=== PATIENT | female | born 1935 | race Hispanic/Latino ===

== ENCOUNTER 2016-08-12 10:29 | Outpatient (CLI) | payer MEDICARE ==
--- NOTE | 2016-08-13 10:29 | PET Report ---
PET SB TO MT SUBSEQUENT: HISTORY: Restaging of left breast cancer. TECHNIQUE: 13.7 millicuries F-18 FDG was administered intravenously. Noncontrast CT images and PET images were obtained from the skull base to the proximal thighs. Fused images were reviewed on a workstation. The patient's blood glucose level measured 101. COMPARISON: 04/01/16. FINDINGS: BRAIN: physiologic FDG uptake in the imaged brain. NECK: There is a new solitary 1.4 cm right jugular lymph node which demonstrates a max SUV of 3.4 on image 39. MEDIASTINUM: physiologic FDG uptake. LUNGS: The previously described right upper lobe mass or infiltration has essentially resolved since 04/01/16. Max SUV has decreased from 7.9 to 2.1. There are minimal residual peribronchial densities remaining in this area. The remainder of the lungs are clear. No new mass, infiltrate or effusion. PLEURA/PERICARDIUM: physiologic FDG uptake. THORACIC LYMPH NODES: physiologic FDG uptake. CHEST WALL: Stable left mastectomy changes. No recurrent chest wall mass. Physiologic FDG uptake. HEPATOBILIARY: physiologic FDG uptake. Mean liver SUV measures 2.9 which is unchanged. PANCREAS: physiologic FDG uptake. SPLEEN: physiologic FDG uptake. ADRENAL GLANDS: physiologic FDG uptake. KIDNEYS/RENAL COLLECTING SYSTEMS: physiologic FDG uptake. BOWEL/MESENTERY: physiologic FDG uptake. PELVIC VISCERA: physiologic FDG uptake. ABDOMINAL/PELVIC LYMPH NODES: physiologic FDG uptake. MUSCULOSKELETAL: physiologic FDG uptake. Sclerotic left sixth rib lesion is again noted and unchanged. No new bony lesions are appreciated. IMPRESSION: A mixed response to therapy is suggested. A right upper lobe mass or infiltrate has essentially resolved since the previous examination. There is a new 1.4 cm mildly hypermetabolic right jugular lymph node on today's exam. Please see above. The remainder of the exam is unchanged.
== END 2016-08-12 10:30 | disposition home or self-care (01) ==
LOC: PET 10:29
PROVIDERS: ATTEND Internal Medicine Hematology & Oncology
DX: C50.212 Malignant neoplasm of upper-inner quadrant of left female breast (principal); M81.8 Other osteoporosis without current pathological fracture; M89.8X8 Other specified disorders of bone, other site; Z90.12 Acquired absence of left breast and nipple
CPT/HCPCS: 78815; 82962; A9552

== ENCOUNTER 2016-12-16 10:28 | Outpatient (CLI) | payer MEDICARE ==
--- NOTE | 2016-12-17 10:03 | PET Report ---
PET/CT:12/16/16 10:28:00 CLINICAL: Breast cancer restaging. RADIOPHARMACEUTICAL: 13.301mCi F18-FDG. COMPARISON: 08/12/16 and 04/01/16 TECHNIQUE- Following intravenous injection of F-18 FDG and an approximately 60 minute uptake period, CT and PET images from the mid skull to the upper thighs were acquired with the patient in the fasted state. No contrast was administered. The CT protocol used for this PET CT study is designed for attenuation correction and anatomic localization of PET abnormalities. This surplus property disposal agent CT is not desired to produce and cannot replace, cajqc-mp-uly-art diagnostic CT scans with specific imaging protocols for different body parts and indications. Plasma glucose at the time of this test: 109g/dl. The standardized uptake values (SUV) are normalized to patient body weight and indicate the highest activity concentration (SUV max) in a given disease site. FINDINGS: Brain--Physiologic FDG uptake in the visualized regions of the brain. Neck--The previously described FDG avid right jugular lymph node is smaller and measures 1.2 x 0.8 cm compared to 1.4 x 0.9 cm and SUV 2.5 compared to 3.4. No other abnormal lymph nodes. Chest--Physiologic FDG uptake in mediastinal blood pool and myocardium. Lungs--Two or new irregular FDG avid right upper lobe lung opacities in the same wedge-shaped area of previously identified interstitial and nodular opacities. The larger is contiguous to the pleura and measures 1.8 x 1.2 cm with SUV 6.4 and the smaller measures 1.0 x 0.8 cm with SUV 4.0. No other lung nodule or mass. Pleura/pericardium--No abnormal uptake. No pleural effusion. Thoracic nodes--No abnormal uptake. Hepatobiliary--No abnormal uptake. Liver background SUV mean, as a reference for comparing FDG studies, is 3.3 compared to 4.2 on a previous exam. No liver mass. Spleen--No abnormal uptake. Pancreas--No abnormal uptake. Adrenal Glands--No abnormal uptake. Kidneys/Ureters/Bladder--No abnormal uptake. Abdominopelvic Nodes--No abnormal uptake. Bowel/Peritoneum/Mesentery--No abnormal uptake. Pelvic organs--No abnormal uptake. Bones/Soft Tissues--No abnormal uptake. The previously described lesion of the left sixth rib is smaller with no FDG uptake. Other findings: Status post left mastectomy. IMPRESSION- 1. Two new small right upper lobe FDG avid lung opacities which are suspicious for tumor. These lesions are in the same general area as earlier lesions which have come and gone. 2. No other suspicious lesions. The previously described FDG of the right jugular lymph node is smaller with FDG uptake at background levels.
== END 2016-12-16 10:29 | disposition home or self-care (01) ==
LOC: PET 10:28
PROVIDERS: ATTEND Internal Medicine Hematology & Oncology
DX: C50.212 Malignant neoplasm of upper-inner quadrant of left female breast (principal); J98.4 Other disorders of lung; Z90.12 Acquired absence of left breast and nipple
CPT/HCPCS: 78815; 82962; A9552

== ENCOUNTER 2017-03-31 07:11 | Outpatient (CLI) | payer MEDICARE ==
--- NOTE | 2017-03-31 15:31 | PET Report ---
PET SB TO MT SUBSEQUENT: HISTORY: Restaging of left breast cancer. TECHNIQUE: 14.8 millicuries F-18 FDG was administered intravenously. Noncontrast CT images and PET images were obtained from the skull base to the proximal thighs. Fused images were reviewed on a workstation. The patient's blood glucose level measured 89. COMPARISON: 12/16/16. FINDINGS: BRAIN: physiologic FDG uptake in the imaged brain. NECK: physiologic FDG uptake. The previously described right jugular lymph node is normal in size and demonstrates an SUV of 2.1. No new cervical adenopathy or hypermetabolic activity. MEDIASTINUM: physiologic FDG uptake. LUNGS: The previously described densities in the posterior right upper lobe have decreased in size by 20-30% since the previous exam. The subpleural nodule in the posterior right lung has decreased from 1.8cm to 1.1 cm. Max SUV has decreased from 6.4 to 2.1. There are 2 adjacent nodular densities measuring 7 mm and 9 mm which appear relatively stable in size. Max SUV has decreased from 4.0 to 3.6. No new lung nodule or mass is identified. PLEURA/PERICARDIUM: Physiologic FDG uptake. There is a new small layering left pleural effusion measuring up to 1 cm in thickness. No obvious pleural nodularity. THORACIC LYMPH NODES: physiologic FDG uptake. HEPATOBILIARY: physiologic FDG uptake. Mean liver SUV measures 2.9 as opposed to 3.4 on the previous exam. PANCREAS: physiologic FDG uptake. SPLEEN: physiologic FDG uptake. ADRENAL GLANDS: physiologic FDG uptake. KIDNEYS/RENAL COLLECTING SYSTEMS: physiologic FDG uptake. BOWEL/MESENTERY: physiologic FDG uptake. PELVIC VISCERA: physiologic FDG uptake. ABDOMINAL/PELVIC LYMPH NODES: physiologic FDG uptake. MUSCULOSKELETAL: There is a new lytic bone lesion in the lateral left sixth rib with Max SUV measuring 6.0. IMPRESSION: A mixed response to therapy is suggested since the previous exam on 12/16/16. There is interval decreased size and hypermetabolic activity of the nodular lesions in the posterior right upper lobe. There is however a new solitary lytic bone lesion in the lateral left sixth rib. Please see above.
== END 2017-03-31 07:12 | disposition home or self-care (01) ==
LOC: PET 07:11
PROVIDERS: ATTEND Internal Medicine Hematology & Oncology
DX: C50.212 Malignant neoplasm of upper-inner quadrant of left female breast (principal); R91.1 Solitary pulmonary nodule; J90 Pleural effusion, not elsewhere classified; M89.9 Disorder of bone, unspecified; Z79.899 Other long term (current) drug therapy
CPT/HCPCS: 78815; 82962; A9552

== ENCOUNTER 2017-06-16 10:53 | Outpatient (CLI) | payer MEDICARE ==
--- NOTE | 2017-06-20 13:15 | PET Report ---
PET/CT:06/16/17 10:53:00 CLINICAL: Left breast cancer restaging. RADIOPHARMACEUTICAL: 15.9mCi F18-FDG. COMPARISON: 03/31/17 and 12/16/16 PET/CT TECHNIQUE- Following intravenous injection of F-18 FDG and an approximately 60 minute uptake period, CT and PET images from the mid skull to the upper thighs were acquired with the patient in the fasted state. No contrast was administered. The CT protocol used for this PET CT study is designed for attenuation correction and anatomic localization of PET abnormalities. This drawing tracer CT is not desired to produce and cannot replace, taafl-mg-pam-art diagnostic CT scans with specific imaging protocols for different body parts and indications. Plasma glucose at the time of this test: 109g/dl. The standardized uptake values (SUV) are normalized to patient body weight and indicate the highest activity concentration (SUV max) in a given disease site. FINDINGS: Brain--Physiologic FDG uptake in the visualized regions of the brain. Neck--Physiologic FDG uptake . Chest--Physiologic FDG uptake in mediastinal blood pool and myocardium. Lungs--The previously described wedge-shaped area of patchy and nodular lung opacities of the right upper lobe is not significantly on CT changed compared to the 2 prior exams. The dominant pleural based nodular opacity measures 1.2 x 0.9 cm and the highest SUV measures 1.3 compared to 3.1 on the last exam. No new lung nodule or mass. Pleura/pericardium--No abnormal uptake. Thoracic nodes--No abnormal uptake. Hepatobiliary--No abnormal uptake. Liver background SUV mean, as a reference for comparing FDG studies, is 2.8 compared to 2.3 on the last exam. No liver mass. Spleen--No abnormal uptake. Pancreas--No abnormal uptake. Adrenal Glands--No abnormal uptake. Kidneys/Ureters/Bladder--No abnormal uptake. Abdominopelvic Nodes--No abnormal uptake. Bowel/Peritoneum/Mesentery--No abnormal uptake. Pelvic organs--No abnormal uptake. 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 No new bone lesion. 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 No new lesions.
== END 2017-06-16 10:54 | disposition home or self-care (01) ==
LOC: PET 10:53
PROVIDERS: ATTEND Internal Medicine Hematology & Oncology
DX: C79.51 Secondary malignant neoplasm of bone (principal); C50.212 Malignant neoplasm of upper-inner quadrant of left female breast; Z79.899 Other long term (current) drug therapy
CPT/HCPCS: 78815; 82962; A9552

== ENCOUNTER 2017-12-08 10:44 | Outpatient (CLI) | payer MEDICARE ==
--- NOTE | 2017-12-09 08:32 | PET Report ---
PET/CT:12/08/17 10:44:00 CLINICAL: Breast cancer restaging RADIOPHARMACEUTICAL: 14.51mCi F18-FDG. COMPARISON: 09/22/17 PET/CT TECHNIQUE- Following intravenous injection of F-18 FDG and an approximately 60 minute uptake period, CT and PET images from the mid skull to the upper thighs were acquired with the patient in the fasted state. No contrast was administered. The CT protocol used for this PET CT study is designed for attenuation correction and anatomic localization of PET abnormalities. This automatic i threading machine feeder CT is not desired to produce and cannot replace, vzmmi-jc-edy-art diagnostic CT scans with specific imaging protocols for different body parts and indications. Plasma glucose at the time of this test: 86g/dl. The standardized uptake values (SUV) are normalized to patient body weight and indicate the highest activity concentration (SUV max) in a given disease site. FINDINGS: Brain--Physiologic FDG uptake in the visualized regions of the brain. Neck--Physiologic FDG uptake . Chest--Physiologic FDG uptake in mediastinal blood pool and myocardium. Lungs--Reticulonodular right upper lobe lung opacities involve a wedge-shaped portion of the lung and are not significantly changed compared to previous exams by CT. However, slightly greater FDG uptake with SUV 2.8. Pleura/pericardium--The pleural based right upper lobe nodular opacity in the same area as the reticulonodular lung opacities measures 1.1 x 1.0 cm with SUV 2.1 compared to 1.2 x 0.9 cm and SUV of 1.3 on the last exam. On the exam before the last one, the SUV had measured 3.1. Thoracic nodes--No abnormal uptake. Hepatobiliary--No abnormal uptake. Liver background SUV mean, as a reference for comparing FDG studies, is 3.3 compared to 2.9 on the last exam. No liver mass. Cholelithiasis but no signs of acute cholecystitis. Spleen--No abnormal uptake. Pancreas--No abnormal uptake. Adrenal Glands--No abnormal uptake. Kidneys/Ureters/Bladder--No abnormal uptake. Abdominopelvic Nodes--No abnormal uptake. Bowel/Peritoneum/Mesentery--No abnormal uptake. Pelvic organs--No abnormal uptake. Bones/Soft Tissues--The 7.7 cm long FDG avid lytic lesion of the left sixth rib is more lytic with increased FDG uptake and SUV 13.8 compared to 6.4 on the last exam. No other suspicious bone lesions. Status post bilateral hip replacement. Other findings: Surgical clips in the pelvis and anterior abdominal pelvic mass graft. IMPRESSION- 1. No new lesions. However, significantly increased FDG uptake in the left sixth rib metastasis which has become more lytic and slightly increased FDG uptake in the right upper lobe lung and pleural-based opacities. 2. No evidence of hepatic or kim metastasis. 3. Cholelithiasis but no signs of acute cholecystitis.
== END 2017-12-08 10:45 | disposition home or self-care (01) ==
LOC: PET 10:44
PROVIDERS: ATTEND Internal Medicine Hematology & Oncology
DX: C50.212 Malignant neoplasm of upper-inner quadrant of left female breast (principal); K80.20 Calculus of gallbladder without cholecystitis without obstruction; Z90.12 Acquired absence of left breast and nipple
CPT/HCPCS: 78815; 82962; A9552

== ENCOUNTER 2018-08-03 08:59 | Outpatient (CLI) | payer MEDICARE ==
--- NOTE | 2018-08-04 09:59 | PET Report ---
PET/CT:08/03/18 08:59:00 CLINICAL: Left breast cancer restaging. RADIOPHARMACEUTICAL: 13.49mCi F18-FDG. COMPARISON: 04/20/18 PET/CT TECHNIQUE- Following intravenous injection of F-18 FDG and an approximately 60 minute uptake period, CT and PET images from the mid skull to the upper thighs were acquired with the patient in the fasted state. No contrast was administered. The CT protocol used for this PET CT study is designed for attenuation correction and anatomic localization of PET abnormalities. This terminal block assembler CT is not desired to produce and cannot replace, numch-sa-nmo-art diagnostic CT scans with specific imaging protocols for different body parts and indications. Plasma glucose at the time of this test: 87g/dl. The standardized uptake values (SUV) are normalized to patient body weight and indicate the highest activity concentration (SUV max) in a given disease site. FINDINGS: Brain--Physiologic FDG uptake in the visualized regions of the brain. Neck--A new 9 mm FDG avid right level II jugular lymph with SUV 3.6 image 33, series 1. An adjacent anterior and inferior 9 mm lymph node is non-FDG avid. No other lymph nodes. Physiologic FDG uptake in mucosal structures. Chest--Physiologic FDG uptake in mediastinal blood pool and myocardium. Status post left mastectomy. Lungs--No abnormal uptake. Stable wedge-shaped right upper lobe non-FDG avid reticular and nodular lung opacities. Pleura/pericardium--No abnormal uptake. Thoracic nodes--No abnormal uptake. Hepatobiliary--No abnormal uptake. Liver background SUV mean, as a reference for comparing FDG studies, is 2.8 compared to 3.1 on the last exam. No liver mass. Cholelithiasis but no signs of acute cholecystitis. Spleen--No abnormal uptake. Pancreas--No abnormal uptake. Adrenal Glands--No abnormal uptake. Kidneys/Ureters/Bladder--No abnormal uptake. Abdominopelvic Nodes--No abnormal uptake. Bowel/Peritoneum/Mesentery--No abnormal uptake. Pelvic organs--No abnormal uptake. Bones/Soft Tissues--The FDG avid left sixth rib metastasis is stable by CT but stable FDG uptake and SUV 11.6. However, a new focus of FDG uptake in the left sixth rib is identified at the costosternal junction with SUV 6.2. IMPRESSION- 1. A new FDG avid right level II jugular lymph node is of uncertain significance. 2. Stable non-FDG avid lung opacities and nodules. 3. New focus of FDG uptake in the left sixth rib at the costosternal junction is consistent with extension of the FDG avid left sixth rib lesion. 4. No evidence of hepatic metastasis.
== END 2018-08-03 09:00 | disposition home or self-care (01) ==
LOC: PET 08:59
PROVIDERS: ATTEND Internal Medicine Hematology & Oncology
DX: C50.212 Malignant neoplasm of upper-inner quadrant of left female breast (principal); D64.9 Anemia, unspecified
CPT/HCPCS: 78815; 82962; A9552

== ENCOUNTER 2018-09-28 12:38 | Outpatient (CLI) | payer MEDICARE ==
--- NOTE | 2018-09-29 11:11 | PET Report ---
PET/CT:09/28/18 12:38:00 CLINICAL: Left breast cancer restaging. RADIOPHARMACEUTICAL: 15.26mCi F18-FDG. COMPARISON: 08/03/18 PET/CT TECHNIQUE- Following intravenous injection of F-18 FDG and an approximately 60 minute uptake period, CT and PET images from the mid skull to the upper thighs were acquired with the patient in the fasted state. No contrast was administered. The CT protocol used for this PET CT study is designed for attenuation correction and anatomic localization of PET abnormalities. This production bow maker CT is not desired to produce and cannot replace, pbxit-ql-glt-art diagnostic CT scans with specific imaging protocols for different body parts and indications. Plasma glucose at the time of this test: 99g/dl. The standardized uptake values (SUV) are normalized to patient body weight and indicate the highest activity concentration (SUV max) in a given disease site. FINDINGS: Brain--Physiologic FDG uptake in the visualized regions of the brain. Neck--Physiologic FDG uptake mucosal structures. The previously identified right level II jugular lymph node measures 9 mm with SUV 4.3 compared to 3.6 on the last exam. No other significant lymph nodes. Chest--Physiologic FDG uptake in mediastinal blood pool and myocardium. Status post bilateral mastectomy. Lungs--No abnormal uptake. Stable wedge-shaped right upper lobe non-FDG avid reticulonodular lung opacities. No new lung nodule or mass. Pleura/pericardium--No abnormal uptake. No pleural effusion. Thoracic nodes--No abnormal uptake. Hepatobiliary--No abnormal uptake. Liver background SUV mean, as a reference for comparing FDG studies, is 3.5 compared to 2.7 on the last exam. No liver mass. Spleen--No abnormal uptake. Pancreas--No abnormal uptake. Adrenal Glands--No abnormal uptake. Kidneys/Ureters/Bladder--No abnormal uptake. Abdominopelvic Nodes--No abnormal uptake. Bowel/Peritoneum/Mesentery--No abnormal uptake. Pelvic organs--No abnormal uptake. Bones/Soft Tissues--The FDG avid left sixth rib lytic metastasis is stable by CT but demonstrates increased FDG uptake with SUV 13.5 compared to 11.6. New FDG uptake in the left fifth and sixth ribs with SUV 9.1 and 6.8 respectively. No other suspicious bone lesions. IMPRESSION- Progression of disease with new left fifth and seventh rib FDG avid metastases and increased FDG uptake in the previously identified left sixth rib metastasis. Slight increased FDG uptake in a right cervical lymph node. No evidence of hepatic metastasis. Stable non-FDG avid probably benign right upper lobe reticulonodular lung opacities.
== END 2018-09-28 12:39 | disposition home or self-care (01) ==
LOC: PET 12:38
PROVIDERS: ATTEND Internal Medicine Hematology & Oncology
DX: C50.212 Malignant neoplasm of upper-inner quadrant of left female breast (principal); R59.0 Localized enlarged lymph nodes
CPT/HCPCS: 78815; 82962; A9552

== ENCOUNTER 2019-01-25 09:43 | Outpatient (CLI) | payer MEDICARE ==
--- NOTE | 2019-01-25 16:06 | PET Report ---
PET/CT CLINICAL: Left breast cancer restaging. COMPARISON: 09/28/2018 and 08/03/2018 RADIOPHARMACEUTICAL: 13.226 mCi F-18-FDG TECHNIQUE: Following the intravenous injection of F-18-FDG and an approximately 60 minute uptake period, CT and PET images from the mid skull to the upper thighs were acquired with the patient in the fasted state. No contrast was administered. The CT protocol used for this PET CT study is designed for attenuation correction and anatomic localization of PET abnormalities. This clip on sunglasses assembler CT is not desired to produ ce and cannot replace ykwor-ar-lqr-art diagnostic CT scans with specific imaging protocols for differ ent body parts and indications. Plasma glucose at the time of this test: 108g/dl The standardized uptake values (SUV) are normalized to patient body weight and indicate the highest a ctivity concentration (SUV max) in a given disease state. FINDINGS: Brain: Physiologic uptake in the visualized regions of the brain. Neck: Physiologic FDG uptake in mucosal structures. An 8 mm FDG avid right jugular level 2 lymph node with a stable SUV max 4.2. No other FDG avid lymph nodes. Chest: Physiologic FDG uptake in mediastinal blood pool and myocardium. Lungs: No suspicious uptake. Stable right upper lobe wedge-shaped reticulonodular lung opacities with FDG uptake slightly greater than background. No pulmonary nodule or mass. Pleura/pericardium: No abnormal uptake. Thoracic nodes: A small right hilar lymph node with FDG uptake and SUV 3.3. Hepatobiliary: No abnormal uptake. Liver background SUV mean, as a reference for comparing FDG studie s, is 3.1 compared to 3.5 on the last exam. No liver mass. Spleen: No abnormal uptake. Pancreas: No abnormal uptake. Adrenal glands: No abnormal uptake. Kidneys/ureters/bladder: No abnormal uptake. Abdominopelvic nodes: No abnormal uptake. Bowel/peritoneum/mesentery: No abnormal uptake. Pelvic organs: No abnormal uptake. Bones/soft tissues: The FDG avid left sixth rib metastasis shows decreased FDG uptake (SUV 3.9) and t here is increased sclerosis in the rib. The left seventh rib is also sclerotic but is non-FDG avid. Other findings: None. IMPRESSION: 1. Positive response to therapy with decreased FDG uptake in the left sixth rib metastasis. 2. A stable FDG avid right jugular lymph node which is of uncertain significance. 3. No evidence of pulmonary or hepatic metastasis. Signer Name: Nish Daugherty MD Signed: 01/25/2019 4:02 PM Workstation Name: [id number]
== END 2019-01-25 09:44 | disposition home or self-care (01) ==
LOC: PET 09:43
PROVIDERS: ATTEND Internal Medicine Hematology & Oncology
DX: C50.212 Malignant neoplasm of upper-inner quadrant of left female breast (principal); R73.09 Other abnormal glucose; D64.9 Anemia, unspecified; Z88.0 Allergy status to penicillin; Z88.5 Allergy status to narcotic agent
CPT/HCPCS: 78815; 82962; A9552

== ENCOUNTER 2019-05-03 09:53 | Outpatient (CLI) | payer MEDICARE ==
--- NOTE | 2019-05-03 15:26 | PET Report ---
PET/CT CLINICAL: History of left breast cancer, restaging. RADIOPHARMACEUTICAL: 14.483 mCi F-18-FDG COMPARISON: 01/25/2019, 09/28/2018. TECHNIQUE: Following the intravenous injection of F-18-FDG and an approximately 60 minute uptake period, CT and PET images from the mid skull to the upper thighs were acquired with the patient in the fasted state. No contrast was administered. The CT protocol used for this PET CT study is designed for attenuation correction and anatomic localization of PET abnormalities. This filer helper CT is not desired to produ ce and cannot replace fhbre-fw-dtk-art diagnostic CT scans with specific imaging protocols for differ ent body parts and indications. Plasma glucose at the time of this test: 103g/dl The standardized uptake values (SUV) are normalized to patient body weight and indicate the highest a ctivity concentration (SUV max) in a given disease state. FINDINGS: Brain: Physiologic uptake in the visualized regions of the brain. Neck: Physiologic FDG uptake in mucosal structures. A 6 mm FDG avid right jugular lymph node (level 2 ) is again noted with current max SUV of 3.1. This appears decreased in size and degree of hypermetab olic activity compared to most recent PET/CT where it measured 8 mm with maximum SUV of 4.2. Chest: Physiologic FDG uptake in mediastinal blood pool and myocardium. Lungs: No abnormal uptake. Stable wedge-shaped area of reticulonodular opacities within the posterior lateral right upper lobe. No significant hypermetabolic activity is identified in this region. Pleura/pericardium: No abnormal uptake. Thoracic nodes: No abnormal uptake. Previously noted small right hilar lymph node is not identified o n the current exam. Hepatobiliary: No abnormal uptake. Liver background SUV mean, as a reference for comparing FDG studie s, is blank compared to blank on the last exam. No liver mass. Spleen: No abnormal uptake. Pancreas: No abnormal uptake. Adrenal glands: No abnormal uptake. Kidneys/ureters/bladder: No abnormal uptake. Abdominopelvic nodes: No abnormal uptake. Bowel/peritoneum/mesentery: No abnormal uptake. Pelvic organs: No abnormal uptake. Bones/soft tissues: Increased sclerotic appearance of the lateral aspect of the left sixth and sevent h ribs. The previously noted soft tissue component of the left sixth rib is no longer present and the re is no current hypermetabolic activity in this region. Other findings: Cholelithiasis is incidentally noted IMPRESSION: Favorable response to treatment with slight decrease in size and degree of hypermetabolic activity in volving the previously noted right jugular lymph node. No residual hypermetabolic activity within the left sixth and seventh ribs at site of previously note d metastases. No new evidence of metastatic disease. Signer Name: Jose Fraga MD Signed: 05/03/2019 3:22 PM Workstation Name: [id number]
== END 2019-05-03 09:54 | disposition home or self-care (01) ==
LOC: PET 09:53
PROVIDERS: ATTEND Internal Medicine Hematology & Oncology
DX: C50.212 Malignant neoplasm of upper-inner quadrant of left female breast (principal); D64.9 Anemia, unspecified; R59.0 Localized enlarged lymph nodes
CPT/HCPCS: 78815; 82962; A9552

== ENCOUNTER 2019-09-20 11:20 | Outpatient (CLI) | payer MEDICARE ==
--- NOTE | 2019-09-20 14:02 | PET Report ---
PET/CT HISTORY: Restaging of breast cancer. TECHNIQUE: The patient's fasting blood glucose was 105. The patient weighed 106 lbs. The patient w as injected with 12.0 mCi of FDG in the right antecubital fossa at 1146 hours and imaging was started at 1235 hours. The patient was imaged from the skull base to the thighs. All CT [facility] at [facility] are performed using CT dose reduction for ALARA by means of automated exposure control. Images we re reviewed on a workstation. COMPARISON: 05/03/2019 FINDINGS: IMAGED BRAIN: [Physiologic FDG uptake. NECK: The previously described 6 mm right jugular lymph node is stable in size and metabolic activity with max SUV measuring 3.1. No new areas of abnormal metabolic activity. CHEST WALL: Physiologic FDG uptake. Stable left mastectomy changes. MEDIASTINUM: Physiologic FDG uptake. LUNGS: Physiologic FDG uptake. HEPATOBILIARY: Physiologic FDG uptake. PANCREAS: Physiologic FDG uptake. SPLEEN: Physiologic FDG uptake. KIDNEYS/BLADDER: Physiologic FDG uptake. ADRENAL GLANDS: Physiologic FDG uptake. GI/MESENTERY: Physiologic FDG uptake. PELVIC VISCERA: Physiologic FDG uptake. LYMPH NODES: Physiologic FDG uptake. OSSEOUS STRUCTURES: Physiologic FDG uptake. Stable appearance of the sclerotic left fifth, sixth and seventh rib lesions. No new bony lesions are appreciated. ADDITIONAL FINDINGS: None. IMPRESSION: No change since 05/03/2019 examination. Signer Name: Shayne Adler Jr, MD Signed: 09/20/2019 1:57 PM Workstation Name: [id number]
== END 2019-09-20 11:21 | disposition home or self-care (01) ==
LOC: PET 11:20
PROVIDERS: ATTEND Internal Medicine Hematology & Oncology
DX: C50.212 Malignant neoplasm of upper-inner quadrant of left female breast (principal); D64.9 Anemia, unspecified
CPT/HCPCS: 78815; 82962; A9552

== ENCOUNTER 2019-12-13 08:43 | Outpatient (CLI) | payer MEDICARE ==
--- NOTE | 2019-12-13 13:46 | PET Report ---
PET/CT HISTORY: C50.12. Restaging of left breast cancer TECHNIQUE: The patient's fasting blood glucose was 105. The patient weighed 106 lbs. The patient w as injected with 12.0 mCi of FDG in the right antecubital fossa at 1146 hours and imaging was started at 1235 hours. The patient was imaged from the skull base to the thighs. All CT scans at this [facility] are performed using CT dose reduction for ALARA by means of automated exposure control. Images we re reviewed on a workstation. COMPARISON: 09/20/2019 FINDINGS: IMAGED BRAIN: Physiologic FDG uptake. NECK: Stable 6 mm right jugular lymph node. Max SUV has increased slightly from 3.1 to 3.9. CHEST WALL: Physiologic FDG uptake. Stable left mastectomy changes. MEDIASTINUM: Physiologic FDG uptake. LUNGS: Physiologic FDG uptake. Chronic scarring in the posterior right upper lobe is unchanged. No s uspicious nodule. HEPATOBILIARY: Physiologic FDG uptake. Max liver SUV measures 3.6. No suspicious liver lesion. PANCREAS: Physiologic FDG uptake. SPLEEN: Physiologic FDG uptake. KIDNEYS/BLADDER: Physiologic FDG uptake. ADRENAL GLANDS: Physiologic FDG uptake. GI/MESENTERY: Physiologic FDG uptake. PELVIC VISCERA: Physiologic FDG uptake. LYMPH NODES: Physiologic FDG uptake. OSSEOUS STRUCTURES: Stable appearance of the sclerotic left fifth, sixth and seventh rib lesions. Mi ld hypermetabolic activity has developed in the left sixth rib with max SUV measuring 3.0. No new bon y lesions are appreciated. ADDITIONAL FINDINGS: None. IMPRESSION: Perhaps minimal progression of disease is demonstrated since the previous exam. The previously descr ibed 6 mm right jugular lymph node demonstrates an increased SUV from 3.1 to 3.9. There is focal incr eased uptake in the lateral left 6th rib on today's exam with max SUV measuring 3.0. No new areas of disease are appreciated. Signer Name: Shayne Adler Jr, MD Signed: 12/13/2019 1:42 PM Workstation Name: [id number]
== END 2019-12-13 08:44 | disposition home or self-care (01) ==
LOC: PET 08:43
PROVIDERS: ATTEND Internal Medicine Hematology & Oncology
DX: J98.4 Other disorders of lung (principal); C50.212 Malignant neoplasm of upper-inner quadrant of left female breast; D64.9 Anemia, unspecified
CPT/HCPCS: 78815; 82962; A9552

== ENCOUNTER 2020-06-19 08:32 | Outpatient (CLI) | payer MEDICARE ==
--- NOTE | 2020-06-20 08:55 | PET Report ---
PET/CT HISTORY: C50.212/D64.9. Restaging of left breast cancer TECHNIQUE: The patient's fasting blood glucose was 81. The patient weighed 102 lbs. The patient wa s injected with 13.2 mCi of FDG in the right antecubital fossa at 1000 hours and imaging was started at 1045 hours. The patient was imaged from the skull base to the thighs. All CT scans at this locati on are performed using CT dose reduction for ALARA by means of automated exposure control. Images wer e reviewed on a workstation. COMPARISON: 12/13/2019 FINDINGS: IMAGED BRAIN: [Physiologic FDG uptake. NECK: Previously described right jugular lymph node is stable in size but demonstrates decreased SUV measuring 2.5.. CHEST WALL: Physiologic FDG uptake. Stable left mastectomy changes. MEDIASTINUM: Physiologic FDG uptake. LUNGS: Physiologic FDG uptake. HEPATOBILIARY: There is mild heterogeneous uptake in the liver on today's exam. Mean liver SUV of th e right hepatic lobe measures 4.7. PANCREAS: Physiologic FDG uptake. SPLEEN: Physiologic FDG uptake. KIDNEYS/BLADDER: Physiologic FDG uptake. ADRENAL GLANDS: Physiologic FDG uptake. GI/MESENTERY: Physiologic FDG uptake. PELVIC VISCERA: Physiologic FDG uptake. LYMPH NODES: Physiologic FDG uptake. OSSEOUS STRUCTURES: Sclerotic lesions in the lateral left ribs 5-7 are again seen and demonstrate ne w/increased hypermetabolic activity with max SUV ranging from 4.2 x 5.2 which is increased from 3.0 o n the previous exam. No new bony lesions are detected. Osteopenia and degenerative changes are stable .. ADDITIONAL FINDINGS: None. IMPRESSION: There is increased hypermetabolic activity in left rib lesions at levels 5-7 as described since 2019 exam. No new areas of disease are appreciated. Previously described right jugular lymph node demonstrates decreased SUV from 3.9 to2.5. Signer Name: Shayne Adler Jr, MD Signed: 06/20/2020 8:50 AM Workstation Name: [id number]
== END 2020-06-19 08:33 | disposition home or self-care (01) ==
LOC: PET 08:32
PROVIDERS: ATTEND Internal Medicine Hematology & Oncology
DX: C50.212 Malignant neoplasm of upper-inner quadrant of left female breast (principal); D64.9 Anemia, unspecified; M85.88 Other specified disorders of bone density and structure, other site; M47.819 Spondylosis without myelopathy or radiculopathy, site unspecified; Z90.12 Acquired absence of left breast and nipple
CPT/HCPCS: 78815; 82962; A9552

== ENCOUNTER 2020-10-23 10:54 | Outpatient (CLI) | payer MEDICARE ==
--- NOTE | 2020-10-23 14:37 | PET Report ---
PET-CT SCAN INDICATION / CLINICAL INFORMATION: C50.212/ D64.9. STAGING: Re-staging TECHNIQUE: Tumor imaging, positron emission tomography (PET) with concurrently acquired computed tomography (CT) for attenuation correction and anatomical localization; Skull Base to Mid Thigh - DOSE: 12.2 mCi F-18 FDG was administered IV per protocol. - GLUCOSE: Patient's blood glucose at that time was (mg/dL): 85 - UPTAKE TIME: PET scan performed approximately 60 minutes after radiotracer administration. - CT SCAN DESCRIPTION: No oral or IV contrast. All CT scans at this location are performed using CT d ose reduction for ALARA by means of automated exposure control. COMPARISON: PET/CT from 06/19/2020 FINDINGS: HEAD / NECK: Right cervical lymph node is unchanged in size and demonstrates decreased FDG uptake wit h SUV max measuring 2.2; previously measured 2.5. No new radiotracer uptake in the head or neck. CHEST: No abnormal radiotracer uptake in the chest. No hypermetabolic pulmonary nodule or lymphadenop athy. Chronic parenchymal scarring in the posterior right upper lobe is unchanged. ABDOMEN / PELVIS: No abnormal radiotracer uptake in the abdomen. No significant CT abnormality. LOWER EXTREMITIES: No abnormal radiotracer uptake in the visualized lower extremities. No significant CT abnormality. SKELETAL STRUCTURES: Sclerotic lesions of the left lateral fifth through seventh ribs redemonstrated with persistent metabolic activity in the left lateral sixth rib. This measures 4.1 in max SUV; previ ously measured 5.5. No new hypermetabolic osseous lesions. ADDITIONAL FINDINGS: No additional significant findings. IMPRESSION: 1. Improved uptake associated with right cervical lymph node and osseous lesions of the left lateral sixth rib, consistent with positive response to therapy. 2. No new FDG avid neoplastic disease identified. Signer Name: Darvin Vidal MD Signed: 10/23/2020 2:33 PM Workstation Name: [id number]
== END 2020-10-23 10:55 | disposition home or self-care (01) ==
LOC: PET 10:54
PROVIDERS: ATTEND Internal Medicine Hematology & Oncology
DX: C50.212 Malignant neoplasm of upper-inner quadrant of left female breast (principal); D64.9 Anemia, unspecified
CPT/HCPCS: 78815; 82962; A9552

== ENCOUNTER 2021-02-19 10:06 | Outpatient (CLI) | payer MEDICARE ==
--- NOTE | 2021-02-19 13:52 | PET Report ---
PET-CT SCAN INDICATION / CLINICAL INFORMATION: C50.111. Left breast cancer STAGING: Restaging TECHNIQUE: Tumor imaging, positron emission tomography (PET) with concurrently acquired computed tomography (CT) for attenuation correction and anatomical localization; Skull Base to Mid Thigh DOSE: 11.7 mCi F-18 FDG was administered IV per protocol in the right antecubital fossa UPTAKE TIME: PET scan performed approximately 60 minutes after radiotracer administration. CT SCAN DESCRIPTION: No oral or IV contrast.. All CT scans at this location are performed using CT do se reduction for ALARA by means of automated exposure control. COMPARISON: PET scan from 10/23/2020 FINDINGS: Background right hepatic lobe activity has a maximum SUV of 4.2. HEAD/NECK: Right cervical lymph node uptake measures 3.9, previously 2.2. CHEST: No abnormal radiotracer uptake in the chest. ABDOMEN / PELVIS: No abnormal radiotracer uptake in the abdomen. 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 ADDITIONAL FINDINGS: No significant additional findings. IMPRESSION: 1. Unchanged pattern of uptake as outlined above involving a right cervical lymph node and left sixth rib laterally. The SUV values have increased; however, please note that the background hepatic activ ity in the current exam is 4.2 and on the previous exam was only 1.7. Signer Name: Renan Mantilla MD Signed: 02/19/2021 1:48 PM Workstation Name: [id number]
== END 2021-02-19 10:07 | disposition home or self-care (01) ==
LOC: PET 10:06
PROVIDERS: ATTEND Internal Medicine Hematology & Oncology
DX: C50.212 Malignant neoplasm of upper-inner quadrant of left female breast (principal); C50.111 Malignant neoplasm of central portion of right female breast
CPT/HCPCS: 78815; 82962; A9552

== ENCOUNTER 2021-05-21 08:24 | Outpatient (CLI) | payer MEDICARE ==
--- NOTE | 2021-05-21 13:48 | PET Report ---
PET/CT HISTORY: C50.212. Restaging of left breast cancer TECHNIQUE: The patient's fasting blood glucose was 87. The patient weighed 94 lbs. The patient was injected with 14.0 mCi of FDG in the right antecubital fossa at 0857 hours and imaging was started a t 0942 hours. The patient was imaged from the skull base to the thighs. All CT scans at this [facility] are performed using CT dose reduction for ALARA by means of automated exposure control. Images were reviewed on a workstation. COMPARISON: 02/19/2021 FINDINGS: IMAGED BRAIN: Physiologic FDG uptake. NECK: Physiologic FDG uptake. Previously described hypermetabolic right cervical lymph node has resol delia. CHEST WALL: Physiologic FDG uptake. MEDIASTINUM: Physiologic FDG uptake. LUNGS: Physiologic FDG uptake. HEPATOBILIARY: Physiologic FDG uptake. PANCREAS: Physiologic FDG uptake. SPLEEN: Physiologic FDG uptake. KIDNEYS/BLADDER: Physiologic FDG uptake. ADRENAL GLANDS: Physiologic FDG uptake. GI/MESENTERY: Physiologic FDG uptake. PELVIC VISCERA: Physiologic FDG uptake. LYMPH NODES: There is a focus of increased uptake in the retroperitoneum presumably representing a r etroperitoneal lymph node measuring 1.1 cm in short axis. Max SUV measures 8.0. No additional hyperme tabolic lymph nodes are identified.. OSSEOUS STRUCTURES: Lytic lesion in the lateral left sixth rib is again noted with max SUV decreasin g from 7.0 to 5.1. No new hypermetabolic bony lesions are detected. ADDITIONAL FINDINGS: None. IMPRESSION: A mixed response to therapy is demonstrated since 02/19/2021. Hypermetabolic activity in the right c ervical lymph node has resolved. There is decreased metabolic activity in the left lateral sixth rib lesion as described. There is new focal uptake in the retroperitoneum which presumably represents a n ew hypermetabolic aortocaval lymph node. No additional areas of hypermetabolic disease is identified. Signer Name: Shayne Adler Jr, MD Signed: 05/21/2021 1:42 PM Workstation Name: [id number]
== END 2021-05-21 08:25 | disposition home or self-care (01) ==
LOC: PET 08:24
PROVIDERS: ATTEND Internal Medicine Hematology & Oncology
DX: C50.212 Malignant neoplasm of upper-inner quadrant of left female breast (principal); D64.9 Anemia, unspecified; C79.51 Secondary malignant neoplasm of bone
CPT/HCPCS: 78815; 82962; A9552

== ENCOUNTER 2021-08-27 09:19 | Outpatient (CLI) | payer MEDICARE ==
--- NOTE | 2021-08-27 14:29 | PET Report ---
PET SB TO MT SUBSEQUENT INDICATION / CLINICAL INFORMATION: RESTAGING BREAST CANCER. TRACER: F-18 FDG 13.2 mCi IV injection on 08/27/2021. Blood glucose is 82 mg/dL. TECHNIQUE: Following injection of the above tracer and appropriate delay, PET imaging was performed from the [facility] ll base to the upper thighs. CT imaging was performed same time for the purposes of anatomic localiza tion. All CT examinations at this institution utilize dose reduction: Automated exposure control. COMPARISON: PET CT 05/21/2021. FINDINGS: HEAD/NECK: Low-grade uptake in the region of the right parotid gland with maximal SUV of 3.7. CHEST: Persistent uptake within a lytic lesion at the left sixth rib laterally with maximal SUV of 5.8 (prev iously 5.1). ABDOMEN/PELVIS: Previously seen uptake is resolved. UPPER LEGS: No abnormal uptake INCIDENTAL CT FINDINGS: No new suspicious CT abnormality. IMPRESSION: Mixed response with new mild uptake at the right parotid gland likely representing a small node. Upta ke at the left sixth rib without significant change. Abdominal uptake has resolved. Signer Name: Zac Zapata MD Signed: 08/27/2021 2:24 PM Workstation Name: [id number]
== END 2021-08-27 09:20 | disposition home or self-care (01) ==
LOC: PET 09:19
PROVIDERS: ATTEND Internal Medicine Hematology & Oncology
DX: S23.41XA Sprain of ribs, initial encounter (principal); C50.212 Malignant neoplasm of upper-inner quadrant of left female breast; X58.XXXA Exposure to other specified factors, initial encounter; Y93.89 Activity, other specified; Y92.89 Other specified places as the place of occurrence of the external cause; Y99.8 Other external cause status
CPT/HCPCS: 78815; 82962; A9552